=== PATIENT | female | born 1950 | race Caucasian/White ===

== ENCOUNTER 2017-07-01 11:42 | Emergency (ER) | payer MEDICARE, MEDICAID ==
[~2017-07-01] VITALS: Ht 162.6 cm; Wt 105.1 kg
[~2017-07-01 11:42] MED LIST: ALBU8HFA PO; CAR30T PO; GLYB-97 PO; LISI-600 PO; METF500T PO; PHEN-716 PO; PRED50TA PO; ZOC40T PO
[2017-07-01 12:18] VITALS: BP 146/101
[2017-07-01 12:49] LABS: BASOPHILS % (AUTO) 0.2 % (0-1); EOSINOPHILS # (AUTO) 0.1 X10'3 (0-0.9); EOSINOPHILS % (AUTO) 1.9 % (0-6); HEMATOCRIT 39.1 % (35.0-45.0); HEMOGLOBIN 13.3 g/dl (12.0-16.0); LYMPHOCYTES # (AUTO) 0.7 X10'3 (1.1-4.8); MEAN CORPUSCULAR HEMOGLOBIN 28.3 PG (27.0-31.0); MEAN CORPUSCULAR HGB CONC 33.9 % (33.0-36.5); MEAN CORPUSCULAR VOLUME 83.4 FL (78-98); MEAN PLATELET VOLUME 9.3 FL (7.4-10.4); MONOCYTES # (AUTO) 0.3 X10'3 (0-0.9); MONOCYTES % (AUTO) 4.6 % (2-12); NEUTROPHILS % (AUTO) 82.3 % (42-75); PLATELET COUNT 179 X10'3 (140-440); RED BLOOD COUNT 4.69 X10'6 (4.20-5.60); RED CELL DISTRIBUTION WIDTH 12.9 % (11.5-14.5); WHITE BLOOD COUNT 6.1 X10'3 (4.5-11.0)
[2017-07-01 12:58] LABS: PROTHROMBIN TIME 10.1 SECONDS (9.0-12.0)
[2017-07-01 13:04] LABS: ALANINE AMINOTRANSFERASE 18 U/L (12-78); ALBUMIN 3.3 G/DL (3.4-5.0); ALBUMIN/GLOBULIN RATIO 0.8 (1.1-1.5); ALKALINE PHOSPHATASE 85 IU/L (46-116); ANION GAP 9 (8-16); ASPARTATE AMINO TRANSFERASE 11 U/L (10-37); BILIRUBIN,TOTAL 0.5 MG/DL (0.1-1.0); BLOOD UREA NITROGEN 27 MG/DL (7-18); BUN/CREATININE RATIO 16.9 (6.6-38.0); CALCIUM 9.3 MG/DL (8.5-10.1); CHLORIDE 101 MMOL/L (99-107); GLUCOSE 393 MG/DL (70-104); POTASSIUM 4.6 MMOL/L (3.5-5.1); SODIUM 139 MMOL/L (135-145); TOTAL CARBON DIOXIDE 29.4 MMOL/L (24-32); TOTAL PROTEIN 7.3 G/DL (6.4-8.2); eGFR 32 ML/MIN
[2017-07-01] MEDS ORDERED: pantoprazole 40mg Tablet.DR PO ONE (15:10)
[2017-07-01] MEDS ORDERED: ondansetron 4mg rapidly disintigrating tab PO ONE (15:10)
[2017-07-01] MEDS ORDERED: famotidine 20mg tablet PO ONE (15:10)
[2017-07-01 15:15] LABS: CLARITY,URINE SLIGHTLY CLOUDY (Clear); COLOR,URINE YELLOW (Yellow); GLUCOSE, URINE >=1000 mg/dl (Neg); KETONES,URINE TRACE mg/dl (Neg); LEUKOCYTE ESTERASE ,URINE NEGATIVE (Neg); NITRITES, URINE NEGATIVE (Neg); OCCULT BLOOD,URINE NEGATIVE (Neg); PH,URINE 5.5 (4.8-8.0); PROTEIN,URINE TRACE mg/dl (Neg); UROBILINOGEN,URINE 0.2 E.U/dL (0.2-1.0)
[2017-07-01] MEDS ORDERED: POLY119P2 PO (15:15)
[2017-07-01] MEDS ORDERED: HYDROcodone/acetaminophen 5mg/325mg tablet PO ONE (15:15)
[2017-07-01 15:23] LABS: UA COLLECTION TYPE CLN CATCH MIDSTREAM
[2017-07-01 15:25] LABS: BACTERIA,URINE FEW /HPF (Neg); MUCUS STRANDS MANY /LPF (Neg); RBC,URINE NONE SEEN /HPF (0-2); SQUAMOUS EPITHELIAL CELL,UR FEW /LPF (FEW)
== END 2017-07-01 16:25 | disposition home or self-care (01) ==
LOC: ER 11:42
DX: R10.84 Generalized abdominal pain (principal); R11.2 Nausea with vomiting, unspecified; M54.5 Low back pain; G89.29 Other chronic pain; E11.9 Type 2 diabetes mellitus without complications; E78.00 Pure hypercholesterolemia, unspecified; I10 Essential (primary) hypertension; K21.9 Gastro-esophageal reflux disease without esophagitis; I48.91 Unspecified atrial fibrillation; J45.909 Unspecified asthma, uncomplicated; Z86.73 Personal history of transient ischemic attack (TIA), and cerebral infarction without residual deficits; Z90.49 Acquired absence of other specified parts of digestive tract; Z79.899 Other long term (current) drug therapy; Z79.84 Long term (current) use of oral hypoglycemic drugs
CPT/HCPCS: 36415; 80053; 81001; 84484; 85025; 85610; 87088; 93005; 99285

== ENCOUNTER 2019-01-27 15:50 | Inpatient (IN) | payer MEDICAID, MEDICARE ==
[~2019-01-27] VITALS: Ht 162.6 cm; Wt 95.0 kg
[~2019-01-27 15:50] MED LIST changes: +POLY119P2 PO
[2019-01-27 16:27] LABS: BASOPHILS # (AUTO) 0.1 X10'3 (0-0.2); BASOPHILS % (AUTO) 0.5 % (0-1); EOSINOPHILS % (AUTO) 0.1 % (0-6); HEMATOCRIT 36.9 % (35.0-45.0); LYMPHOCYTES # (AUTO) 1.6 X10'3 (1.1-4.8); LYMPHOCYTES % (AUTO) 10.1 % (21-51); MEAN CORPUSCULAR HEMOGLOBIN 27.2 PG (27.0-31.0); MEAN CORPUSCULAR HGB CONC 32.5 g/dL (33.0-36.5); MEAN CORPUSCULAR VOLUME 83.6 FL (78-98); MEAN PLATELET VOLUME 10.4 FL (7.4-10.4); MONOCYTES # (AUTO) 0.8 X10'3 (0-0.9); MONOCYTES % (AUTO) 5.2 % (2-12); NEUTROPHILS # (AUTO) 13.1 X10'3 (1.8-7.7); NEUTROPHILS % (AUTO) 84.1 % (42-75); PLATELET COUNT 360 X10'3 (140-440); RED BLOOD COUNT 4.41 X10'6 (4.20-5.60); RED CELL DISTRIBUTION WIDTH 12.7 % (11.5-14.5); WHITE BLOOD COUNT 15.5 X10'3 (4.5-11.0)
[2019-01-27 16:43] LABS: ALANINE AMINOTRANSFERASE 18 U/L (12-78); ALBUMIN/GLOBULIN RATIO 0.4 (1.1-1.5); ALKALINE PHOSPHATASE 130 IU/L (46-116); ANION GAP 10 (8-16); ASPARTATE AMINO TRANSFERASE 14 U/L (10-37); BILIRUBIN,TOTAL 0.8 MG/DL (0.1-1.0); BLOOD UREA NITROGEN 13 MG/DL (7-18); BUN/CREATININE RATIO 9.4 (6.6-38.0); CALCIUM 8.3 MG/DL (8.5-10.1); CHLORIDE 93 MMOL/L (99-107); CREATININE 1.39 MG/DL (0.40-0.90); GLUCOSE 420 MG/DL (70-104); LIPASE 150 U/L (73-393); SODIUM 128 MMOL/L (135-145); TOTAL CARBON DIOXIDE 25.5 MMOL/L (24-32); TOTAL PROTEIN 7.4 G/DL (6.4-8.2); eGFR 38 ML/MIN
[2019-01-27] MEDS ORDERED: normal saline 1000ML IV soln IVB ONE (18:05)
[2019-01-27] MEDS ORDERED: ondansetron/PF 4mg/2ml inj IV ONE ×3 (18:05→20:35)
--- NOTE | 2019-01-27 18:05 | NUR ---
PATIENT RECEIVED IN BED 8.
[2019-01-27] MEDS: morphine 4 MG/ML inj SYRINge IV PRN ×2 (18:21→19:02)
--- NOTE | 2019-01-27 18:29 | NUR ---
DR. MONIQUE AT BEDSIDE.
[2019-01-27 18:53] LABS: CLARITY,URINE SLIGHTLY CLOUDY (Clear); COLOR,URINE AMBER (Yellow); GLUCOSE, URINE >=1000 mg/dl (Neg); KETONES,URINE TRACE mg/dl (Neg); LEUKOCYTE ESTERASE ,URINE TRACE (Neg); NITRITES, URINE NEGATIVE (Neg); OCCULT BLOOD,URINE LARGE (Neg); PH,URINE 5.5 (4.8-8.0); PROTEIN,URINE 100 mg/dl (Neg)
[2019-01-27 18:55] LABS: UA COLLECTION TYPE CLN CATCH MIDSTREAM
[2019-01-27 19:02] LABS: BACTERIA,URINE 1+ /HPF (Neg); MUCUS STRANDS FEW /LPF (Neg); SQUAMOUS EPITHELIAL CELL,UR MODERATE /LPF (FEW); WBC,URINE 20-30 /HPF (0-4)
[2019-01-27] MEDS ORDERED: CEPH500C5 PO (19:25)
[2019-01-27] MEDS ORDERED: ONDA4TAB12 PO (19:25)
[2019-01-27] MEDS ORDERED: METF500T PO (19:38)
[2019-01-27] MEDS ORDERED: CefTRIAXone 2gm/D5W 50ml 50 ML IV ONE (19:40)
--- NOTE | 2019-01-27 20:00 | NUR ---
PT STARTED ON CEFTRIAXONE IV FOR UTI. PT VITAL SIGNS STABLE. PT A/O X 4. APROX 15 MIN AFTER START OF ABX, PT SON AT BEDSIDE CALLED FOR HELP STATING THAT SOMETHING WAS WRONG. PT FOUND OBTUNDED, RESPONSIVE TO PAINFUL STIMULI. PT O2 SAT DECREASED TO 50% Addendum: 01/27/19 at 2153 by LSAATZER PT CONTINUED TO DECLINE TO CARDIAC ARREST. BEGAN CPR AND VENTILATION W/ HIGH FLOW O2. LIDOCAIN ADMINISTERED 100 MG. AFTER 2 MINUTES CPR, PULSES AND RESPIRATIONS RETURNED. PT PLACED ON NON REBREATHER W/ HIGH FLOW O2. PT MOVED FROM ROOM 8 TO ROOM 6. PT INCREASINGLY A/O.
[2019-01-27 20:41] LABS: D-DIMER 3.09 MG/L FEU (0-0.50)
[2019-01-27 20:47] LABS: TROPONIN I < 0.04 NG/ML (0.0-0.05)
[2019-01-27] MEDS ORDERED: iohexol 350MG/ML 100ml bottle IV ONE (21:14)
--- NOTE | 2019-01-27 21:41 | NUR ---
TO CT SCAN WITH RN ELENA
[2019-01-27] MEDS ORDERED: proCHLORperazine 10 MG/2 ml inj IV PRN ×2 (22:05→22:15)
[2019-01-27] MEDS ORDERED: acetaminophen 325mg tablet PO PRN (22:05)
[2019-01-27] MEDS ORDERED: dextrose 50%-water 50ml dispensing syringe IV PRN ×2 (22:05)
[2019-01-27] MEDS ORDERED: magnesium hydroxide 30ml (MOM) UD suspension PO PRN (22:05)
[2019-01-27] MEDS ORDERED: glucagon, human recombinant 1mg kit SUBCUT PRN (22:05)
[2019-01-27] MEDS ORDERED: ondansetron/PF 4mg/2ml inj IV PRN (22:05)
[2019-01-27] MEDS ORDERED: MESSAGE TO PHARMACY PO ONE (22:05)
[2019-01-27] MEDS ORDERED: morphine 2 MG/ML inj. syringe IV PRN (22:05)
[2019-01-27] MEDS ORDERED: dextrose ORAL solution 15 GM/59 ML bottle PO PRN ×2 (22:05)
[2019-01-27] MEDS ORDERED: potassium Cl 20 mEq SR tablet PO PRN ×2 (22:05)
[2019-01-27] MEDS ORDERED: acetaminophen 650mg rectal suppository RC PRN (22:05)
[2019-01-27] MEDS: normal saline 1000ml 1,000 ML IV SCH (22:30)
[2019-01-27 22:50] LABS: BASOPHILS # (AUTO) 0.1 X10'3 (0-0.2); BASOPHILS % (AUTO) 0.5 % (0-1); EOSINOPHILS % (AUTO) 0.1 % (0-6); HEMATOCRIT 38.4 % (35.0-45.0); HEMOGLOBIN 12.5 g/dl (12.0-16.0); LYMPHOCYTES # (AUTO) 0.6 X10'3 (1.1-4.8); LYMPHOCYTES % (AUTO) 4.7 % (21-51); MEAN CORPUSCULAR HEMOGLOBIN 27.8 PG (27.0-31.0); MEAN CORPUSCULAR HGB CONC 32.6 g/dL (33.0-36.5); MEAN CORPUSCULAR VOLUME 85.2 FL (78-98); MEAN PLATELET VOLUME 10.8 FL (7.4-10.4); MONOCYTES # (AUTO) 0.6 X10'3 (0-0.9); MONOCYTES % (AUTO) 4.6 % (2-12); NEUTROPHILS # (AUTO) 11.1 X10'3 (1.8-7.7); NEUTROPHILS % (AUTO) 90.1 % (42-75); PLATELET COUNT 348 X10'3 (140-440); WHITE BLOOD COUNT 12.3 X10'3 (4.5-11.0)
[2019-01-27 23:06] LABS: PARTIAL THROMBOPLASTIN TIME 29 SECONDS (22-32)
[2019-01-27 23:14] LABS: HEMOGLOBIN A1C 11.6 % (4.5-6.2)
[2019-01-27 23:28] LABS: ALANINE AMINOTRANSFERASE 117 U/L (12-78); ALBUMIN 1.9 G/DL (3.4-5.0); ALBUMIN/GLOBULIN RATIO 0.3 (1.1-1.5); ALKALINE PHOSPHATASE 258 IU/L (46-116); ANION GAP 11 (8-16); ASPARTATE AMINO TRANSFERASE 260 U/L (10-37); BILIRUBIN,TOTAL 1.6 MG/DL (0.1-1.0); BLOOD UREA NITROGEN 13 MG/DL (7-18); BUN/CREATININE RATIO 10.2 (6.6-38.0); CALCIUM 8.2 MG/DL (8.5-10.1); CHLORIDE 96 MMOL/L (99-107); CREATININE 1.28 MG/DL (0.40-0.90); GLUCOSE 399 MG/DL (70-104); MAGNESIUM 1.6 MG/DL (1.5-2.4); PHOSPHORUS 3.6 MG/DL (2.3-4.5); POTASSIUM 3.7 MMOL/L (3.5-5.1); SODIUM 133 MMOL/L (135-145); TOTAL CARBON DIOXIDE 25.7 MMOL/L (24-32); TOTAL PROTEIN 7.5 G/DL (6.4-8.2); eGFR 41 ML/MIN
[2019-01-27] MEDS ORDERED: metoclopramide 5 mg/ml inj IV ONE (23:30)
[2019-01-27 23:37] LABS: LARGE PLATELETS FEW; PLATELET ESTIMATE NORMAL
[2019-01-28] VITALS (24 sets, daily range): BP systolic 104–172; BP diastolic 56–83
[2019-01-28] MEDS ORDERED: insulin Lispro (HumaLOG) vial - multi-dose SQ ONE (00:05)
[2019-01-28] MEDS: insulin glargine (Lantus) pen - multi-dose SQ SCH ×2 (00:17→21:07)
[2019-01-28 06:00] LABS: BASOPHILS # (AUTO) 0.1 X10'3 (0-0.2); BASOPHILS % (AUTO) 0.5 % (0-1); EOSINOPHILS % (AUTO) 0 % (0-6); HEMATOCRIT 35.7 % (35.0-45.0); HEMOGLOBIN 11.6 g/dl (12.0-16.0); LYMPHOCYTES # (AUTO) 0.8 X10'3 (1.1-4.8); MEAN CORPUSCULAR HEMOGLOBIN 27.4 PG (27.0-31.0); MEAN CORPUSCULAR HGB CONC 32.6 g/dL (33.0-36.5); MEAN CORPUSCULAR VOLUME 84.1 FL (78-98); MEAN PLATELET VOLUME 10.3 FL (7.4-10.4); MONOCYTES # (AUTO) 0.7 X10'3 (0-0.9); MONOCYTES % (AUTO) 5.4 % (2-12); NEUTROPHILS # (AUTO) 11.2 X10'3 (1.8-7.7); NEUTROPHILS % (AUTO) 88.1 % (42-75); PLATELET COUNT 321 X10'3 (140-440); RED BLOOD COUNT 4.24 X10'6 (4.20-5.60); RED CELL DISTRIBUTION WIDTH 12.7 % (11.5-14.5); WHITE BLOOD COUNT 12.8 X10'3 (4.5-11.0)
[2019-01-28 06:29] LABS: ALKALINE PHOSPHATASE 238 IU/L (46-116); BILIRUBIN,TOTAL 1.2 MG/DL (0.1-1.0); BLOOD UREA NITROGEN 14 MG/DL (7-18); MAGNESIUM 1.8 MG/DL (1.5-2.4); PHOSPHORUS 4.5 MG/DL (2.3-4.5); TROPONIN I 0.04 NG/ML (0.0-0.05)
[2019-01-28 06:30] LABS: LDL CHOLESTEROL 80 MG/DL (50-100)
[2019-01-28 06:56] LABS: ALANINE AMINOTRANSFERASE 109 U/L (12-78); ALBUMIN 1.7 G/DL (3.4-5.0); ALBUMIN/GLOBULIN RATIO 0.3 (1.1-1.5); ANION GAP 8 (8-16); ASPARTATE AMINO TRANSFERASE 142 U/L (10-37); BUN/CREATININE RATIO 11.5 (6.6-38.0); CALCIUM 8.3 MG/DL (8.5-10.1); CHLORIDE 100 MMOL/L (99-107); CHOL/HDL RATIO 6.6 (0.00-4.99); CHOLESTEROL 118 MG/DL (0-200); CREATININE 1.22 MG/DL (0.40-0.90); GLUCOSE 311 MG/DL (70-104); HDL CHOLESTEROL 18 MG/DL (35-60); POTASSIUM 4.2 MMOL/L (3.5-5.1); SODIUM 134 MMOL/L (135-145); TOTAL CARBON DIOXIDE 26.2 MMOL/L (24-32); TRIGLYCERIDES 102 MG/DL (20-135); eGFR 44 ML/MIN
[2019-01-28] MEDS: heparin, porcine 5000 units/ml vial SQ SCH ×2 (07:44→19:51)
[2019-01-28] MEDS: normal saline 1000ml 1,000 ML IV SCH ×2 (07:44→18:03)
[2019-01-28] MEDS: levoFLOXACIN-Levaquin 250mg/D5 50 ML IV SCH (07:45)
[2019-01-28] MEDS: docusate sod 100mg capsule PO SCH ×2 (07:56→19:50)
[2019-01-28] MEDS: aspirin 81mg tablet.DR PO SCH (07:57)
[2019-01-28] MEDS ORDERED: pantoprazole 40 MG vial IV SCH (08:00)
[2019-01-28] MEDS: insulin Lispro (HumaLOG) vial - multi-dose SQ SCH ×3 (08:58→19:53)
[2019-01-28] MEDS ORDERED: sod chloride 0.9% 10ml flush syringe IV ONE (09:00)
[2019-01-28] MEDS ORDERED: LIDOcaine 2% (20 mg/ml) 5ml cardiac syringe ONE (09:00)
--- NOTE | 2019-01-28 11:40 | NUR ---
DM consult: Pt with T2DM with A1c 11.6. Pt admit s/p code blue after multimedia author for UTI tx. Pt is a poor historian so hx limited per H&P. Pt will need DM education prior to discharge. Per H&P pt has not been taking medications d/t financial issues, manager social media has been consulted. Pt previously on clear liquid diet documented with 100% PO intake however diet just advanced to CHO controlled, pending PO intake. No documented BM, pt with routine Colace and MoM PRN. Will continue to follow. Recommendations: 1) Continue CHO controlled diet 2) Routine bowel care 3) DM education prior to discharge 4) Wt per rx Addendum: 01/28/19 at [address] Amended: Links added.
--- NOTE | 2019-01-28 18:20 | NUR ---
Patient in room ICU 2041. I have received report from Aileen TIDWELL and had the opportunity to ask questions and assume patient care. Patient sitting up in chair, in no apparent distress. Vitals WNL on room air. Will continue to monitor patient.
[2019-01-28] MEDS: lactobacillus rhamnosus 10,000 MMU CELLS/CAPSULE PO SCH (19:50)
[2019-01-28] MEDS ORDERED: insulin glargine (Lantus) pen - multi-dose SQ SCH (21:00)
--- NOTE | 2019-01-28 21:08 | NUR ---
Patient complaining of "chills", patient visibly shivering. Temperature taken orally and reading 37 degrees celcius. Blood sugar taken and reading 252. Offered patient more blankets, warm tea, or to turn the thermostat up, declines all. Notified Yecenia Banerjee NP, no new orders received at this time. Will continue to monitor patient.
[2019-01-28] MEDS: acetaminophen 325mg tablet PO PRN (23:18)
[2019-01-29] VITALS (21 sets, daily range): BP systolic 89–158; BP diastolic 53–88
[2019-01-29] MEDS: normal saline 1000ml 1,000 ML IV SCH (03:00)
[2019-01-29 06:07] LABS: BASOPHILS # (AUTO) 0.1 X10'3 (0-0.2); BASOPHILS % (AUTO) 0.6 % (0-1); EOSINOPHILS # (AUTO) 0.1 X10'3 (0-0.9); EOSINOPHILS % (AUTO) 0.9 % (0-6); HEMATOCRIT 38.5 % (35.0-45.0); HEMOGLOBIN 12.3 g/dl (12.0-16.0); LYMPHOCYTES # (AUTO) 1.5 X10'3 (1.1-4.8); LYMPHOCYTES % (AUTO) 11.8 % (21-51); MEAN CORPUSCULAR HEMOGLOBIN 26.9 PG (27.0-31.0); MEAN CORPUSCULAR HGB CONC 31.9 g/dL (33.0-36.5); MEAN CORPUSCULAR VOLUME 84.3 FL (78-98); MEAN PLATELET VOLUME 10.8 FL (7.4-10.4); MONOCYTES # (AUTO) 0.5 X10'3 (0-0.9); MONOCYTES % (AUTO) 4.3 % (2-12); NEUTROPHILS # (AUTO) 10.3 X10'3 (1.8-7.7); NEUTROPHILS % (AUTO) 82.4 % (42-75); PLATELET COUNT 346 X10'3 (140-440); RED BLOOD COUNT 4.56 X10'6 (4.20-5.60); RED CELL DISTRIBUTION WIDTH 13.3 % (11.5-14.5); WHITE BLOOD COUNT 12.5 X10'3 (4.5-11.0)
--- NOTE | 2019-01-29 06:16 | NUR ---
Problems reprioritized. Patient report given, questions answered & plan of care reviewed with Margie TIDWELL.
[2019-01-29 06:24] LABS: ALANINE AMINOTRANSFERASE 84 U/L (12-78); ALBUMIN 1.7 G/DL (3.4-5.0); ALBUMIN/GLOBULIN RATIO 0.3 (1.1-1.5); ALKALINE PHOSPHATASE 211 IU/L (46-116); ANION GAP 6 (8-16); ASPARTATE AMINO TRANSFERASE 50 U/L (10-37); BILIRUBIN,TOTAL 0.4 MG/DL (0.1-1.0); BLOOD UREA NITROGEN 15 MG/DL (7-18); BUN/CREATININE RATIO 12.2 (6.6-38.0); CALCIUM 8.4 MG/DL (8.5-10.1); CHLORIDE 103 MMOL/L (99-107); CREATININE 1.23 MG/DL (0.40-0.90); GLUCOSE 181 MG/DL (70-104); MAGNESIUM 1.7 MG/DL (1.5-2.4); PHOSPHORUS 3.6 MG/DL (2.3-4.5); POTASSIUM 3.9 MMOL/L (3.5-5.1); SODIUM 137 MMOL/L (135-145); TOTAL CARBON DIOXIDE 27.6 MMOL/L (24-32); TOTAL PROTEIN 6.7 G/DL (6.4-8.2); TROPONIN I < 0.04 NG/ML (0.0-0.05); eGFR 43 ML/MIN
--- NOTE | 2019-01-29 06:49 | NUR ---
received report and assumed care of this patient. chart reviewed and plan of care discussed with patient.
[2019-01-29] MEDS: aspirin 81mg tablet.DR PO SCH (07:15)
[2019-01-29] MEDS: docusate sod 100mg capsule PO SCH ×2 (07:15→19:35)
[2019-01-29] MEDS: lactobacillus rhamnosus 10,000 MMU CELLS/CAPSULE PO SCH ×2 (07:16→19:35)
[2019-01-29] MEDS: acetaminophen 325mg tablet PO PRN ×3 (07:16→21:12)
[2019-01-29] MEDS: heparin, porcine 5000 units/ml vial SQ SCH ×2 (07:17→19:36)
[2019-01-29] MEDS: levoFLOXACIN-Levaquin 250mg/D5 50 ML IV SCH (07:17)
[2019-01-29 07:34] LABS: LARGE PLATELETS FEW; PLATELET ESTIMATE NORMAL
[2019-01-29] MEDS: insulin Lispro (HumaLOG) vial - multi-dose SQ SCH ×3 (08:29→19:38)
[2019-01-29] MEDS: pantoprazole 40mg Tablet.DR PO SCH (09:00)
--- NOTE | 2019-01-29 12:01 | NUR ---
DM Consult: Pt resting following pain meds since in substantial pain per RN. TESS left written DM ed at bedside along w/ RD contact information and CDE course information. Pt would benefit from verbal DM reinforcement once more appropriate prior to d/c. Addendum: 01/29/19 at [address] Amended: Links added. Addendum: 01/29/19 at [address] DM/Malnutrition Consults: Pt resting following pain meds since in substantial pain per RN. TESS left written DM ed at bedside along w/ RD contact information and CDE course information. Pt would benefit from verbal DM reinforcement once more appropriate prior to d/c. Pt PO 100% meals meeting needs, no visible signs of muscle/fat loss, and no edema/wounds; does not meet malnutrition criteria at this time.
--- NOTE | 2019-01-29 20:00 | NUR ---
Report given to Esther TIDWELL. Patient transferred to room 3013A via wheelchair accompanied by RN and son with all belongings. Patient alert/oriented x4 and stable at time of transfer.
--- NOTE | 2019-01-29 20:20 | NUR ---
I have received report from DIANN Ba in ICU and had the opportunity to ask questions. Awaiting patient arrival to floor in room 3013A.
--- NOTE | 2019-01-29 20:30 | NUR ---
Patient awake and alert for transfer of care. Patient specific humalog and lantus transferred with patient and handed off by HOME MISSION WORKER to fixture relamper. Personal belongings placed on bedside table and son in room. Patient on 2L NC and saline locked. 2 RN skin check performed and VS are as follows: Temperature- 99.3, HR- 88, 96 2L NC, B/P- 153/72, right arm and 6/10 pain. Will continue to monitor closely.
--- NOTE | 2019-01-29 21:00 | NUR ---
Requested and obtained new patient arm band. Would not scan while performing glucometer checks and is unable to recognize patient's visit account number. complex manager left voice mail for Point of Care regarding patient wristband. Blood glucose 199 at 2100. Will continue to monitor closely.
[2019-01-29] MEDS: insulin glargine (Lantus) pen - multi-dose SQ SCH (21:19)
[2019-01-30 03:00] VITALS: BP 121/59
[2019-01-30 05:54] LABS: ALANINE AMINOTRANSFERASE 50 U/L (12-78); ALBUMIN 1.5 G/DL (3.4-5.0); ALBUMIN/GLOBULIN RATIO 0.3 (1.1-1.5); ALKALINE PHOSPHATASE 175 IU/L (46-116); ANION GAP 7 (8-16); ASPARTATE AMINO TRANSFERASE 21 U/L (10-37); BILIRUBIN,TOTAL 0.2 MG/DL (0.1-1.0); BLOOD UREA NITROGEN 16 MG/DL (7-18); CALCIUM 8.1 MG/DL (8.5-10.1); CHLORIDE 104 MMOL/L (99-107); CREATININE 1.23 MG/DL (0.40-0.90); GLUCOSE 201 MG/DL (70-104); MAGNESIUM 1.8 MG/DL (1.5-2.4); SODIUM 138 MMOL/L (135-145); TOTAL CARBON DIOXIDE 27.2 MMOL/L (24-32); TOTAL PROTEIN 6.2 G/DL (6.4-8.2); eGFR 43 ML/MIN
--- NOTE | 2019-01-30 06:35 | NUR ---
Problems reprioritized. Patient report given, questions answered & plan of care reviewed with DIANN Garibay and DIANN Dixon.
[2019-01-30 07:00] VITALS: BP 155/80
[2019-01-30 08:05] LABS: BASOPHILS # (AUTO) 0.1 X10'3 (0-0.2); EOSINOPHILS # (AUTO) 0.1 X10'3 (0-0.9); EOSINOPHILS % (AUTO) 1.2 % (0-6); HEMATOCRIT 33.7 % (35.0-45.0); HEMOGLOBIN 10.9 g/dl (12.0-16.0); LYMPHOCYTES # (AUTO) 1.4 X10'3 (1.1-4.8); LYMPHOCYTES % (AUTO) 11.4 % (21-51); MEAN CORPUSCULAR HEMOGLOBIN 27.3 PG (27.0-31.0); MEAN CORPUSCULAR HGB CONC 32.4 g/dL (33.0-36.5); MEAN CORPUSCULAR VOLUME 84.3 FL (78-98); MEAN PLATELET VOLUME 10.5 FL (7.4-10.4); MONOCYTES # (AUTO) 0.8 X10'3 (0-0.9); MONOCYTES % (AUTO) 6.1 % (2-12); NEUTROPHILS # (AUTO) 9.8 X10'3 (1.8-7.7); NEUTROPHILS % (AUTO) 80.3 % (42-75); PLATELET COUNT 333 X10'3 (140-440); RED CELL DISTRIBUTION WIDTH 13.2 % (11.5-14.5); WHITE BLOOD COUNT 12.2 X10'3 (4.5-11.0)
[2019-01-30] MEDS: insulin Lispro (HumaLOG) vial - multi-dose SQ SCH ×3 (09:30→21:22)
[2019-01-30] MEDS: heparin, porcine 5000 units/ml vial SQ SCH ×2 (09:31→20:44)
[2019-01-30] MEDS: pantoprazole 40mg Tablet.DR PO SCH (09:32)
[2019-01-30] MEDS: lactobacillus rhamnosus 10,000 MMU CELLS/CAPSULE PO SCH ×2 (09:32→20:45)
[2019-01-30] MEDS: docusate sod 100mg capsule PO SCH ×2 (09:32→20:00)
[2019-01-30] MEDS: aspirin 81mg tablet.DR PO SCH (09:32)
[2019-01-30] MEDS: levoFLOXACIN 250mg tablet PO SCH (10:13)
[2019-01-30] MEDS: acetaminophen 325mg tablet PO PRN ×2 (10:14→20:46)
--- NOTE | 2019-01-30 10:20 | NUR ---
Notified by PT that patient had positive orthostatic VS today and was symptomatic. Will convey to MD today.
[2019-01-30 11:00] VITALS: BP 113/76
[2019-01-30] MEDS ORDERED: NO HOME MEDS (12:03)
--- NOTE | 2019-01-30 14:54 | NUR ---
F/u: Pt not in room during RD visit for attempt to reinforce DM ed. Will continue to monitor. Addendum: 01/30/19 at [address] Amended: Links added.
[2019-01-30 15:00] VITALS: BP 98/60
--- NOTE | 2019-01-30 18:00 | NUR ---
[place] documentation: I have reviewed and agree with all interventions, assessments performed and documented by Stacie TIDWELL. [place] Medication Administration: For this medication-pass time frame, all medication were reviewed, dispensed, administered and documented per hospital policy by Stacie TIDWELL.
--- NOTE | 2019-01-30 18:15 | NUR ---
Patient in room PCU 3013. I have received report from Stacie TIDWELL and Lani TIDWELL and had the opportunity to ask questions and assume patient care.
[2019-01-30 19:00] VITALS: BP 152/79
[2019-01-30] MEDS: insulin glargine (Lantus) pen - multi-dose SQ SCH (21:20)
[2019-01-30 22:51] VITALS: BP 144/71
[2019-01-31 03:00] VITALS: BP 144/62
[2019-01-31 05:16] LABS: BASOPHILS # (AUTO) 0.1 X10'3 (0-0.2); BASOPHILS % (AUTO) 0.9 % (0-1); EOSINOPHILS # (AUTO) 0.2 X10'3 (0-0.9); EOSINOPHILS % (AUTO) 1.9 % (0-6); HEMATOCRIT 34.6 % (35.0-45.0); LYMPHOCYTES # (AUTO) 1.8 X10'3 (1.1-4.8); LYMPHOCYTES % (AUTO) 15.6 % (21-51); MEAN CORPUSCULAR HEMOGLOBIN 26.9 PG (27.0-31.0); MEAN CORPUSCULAR HGB CONC 31.7 g/dL (33.0-36.5); MEAN CORPUSCULAR VOLUME 84.9 FL (78-98); MEAN PLATELET VOLUME 9.9 FL (7.4-10.4); MONOCYTES # (AUTO) 0.8 X10'3 (0-0.9); MONOCYTES % (AUTO) 6.6 % (2-12); NEUTROPHILS # (AUTO) 8.7 X10'3 (1.8-7.7); PLATELET COUNT 376 X10'3 (140-440); RED BLOOD COUNT 4.08 X10'6 (4.20-5.60); RED CELL DISTRIBUTION WIDTH 13.2 % (11.5-14.5); WHITE BLOOD COUNT 11.6 X10'3 (4.5-11.0)
[2019-01-31 05:34] LABS: ALANINE AMINOTRANSFERASE 38 U/L (12-78); ALBUMIN 1.6 G/DL (3.4-5.0); ALBUMIN/GLOBULIN RATIO 0.3 (1.1-1.5); ALKALINE PHOSPHATASE 190 IU/L (46-116); ANION GAP 6 (8-16); ASPARTATE AMINO TRANSFERASE 17 U/L (10-37); BILIRUBIN,TOTAL 0.2 MG/DL (0.1-1.0); BLOOD UREA NITROGEN 16 MG/DL (7-18); BUN/CREATININE RATIO 10.6 (6.6-38.0); CALCIUM 8.6 MG/DL (8.5-10.1); CHLORIDE 104 MMOL/L (99-107); CREATININE 1.51 MG/DL (0.40-0.90); GLUCOSE 195 MG/DL (70-104); MAGNESIUM 1.9 MG/DL (1.5-2.4); POTASSIUM 4.6 MMOL/L (3.5-5.1); SODIUM 138 MMOL/L (135-145); TOTAL CARBON DIOXIDE 28.4 MMOL/L (24-32); TOTAL PROTEIN 6.8 G/DL (6.4-8.2); eGFR 34 ML/MIN
--- NOTE | 2019-01-31 06:39 | NUR ---
Problems reprioritized. Patient report given, questions answered & plan of care reviewed with Estefany TIDWELL.
--- NOTE | 2019-01-31 06:45 | NUR ---
Patient in room PCU 3013. I have received report from misael TIDWELL and had the opportunity to ask questions and assume patient care.
[2019-01-31 07:00] VITALS: BP 171/84
[2019-01-31] MEDS: docusate sod 100mg capsule PO SCH ×2 (08:18→19:22)
[2019-01-31] MEDS: aspirin 81mg tablet.DR PO SCH (08:19)
[2019-01-31] MEDS: heparin, porcine 5000 units/ml vial SQ SCH ×2 (08:19→19:22)
[2019-01-31] MEDS: lactobacillus rhamnosus 10,000 MMU CELLS/CAPSULE PO SCH ×2 (08:19→19:22)
[2019-01-31] MEDS: pantoprazole 40mg Tablet.DR PO SCH (08:19)
[2019-01-31] MEDS: insulin Lispro (HumaLOG) vial - multi-dose SQ SCH ×3 (09:23→19:27)
[2019-01-31] MEDS: levoFLOXACIN 250mg tablet PO SCH (10:36)
[2019-01-31 11:00] VITALS: BP 171/80
--- NOTE | 2019-01-31 13:32 | NUR ---
Reassessment: Pt seen at bedside with family present. Pt reports she hasn't seen an MD for DM management for more than 1 year which at this time she discontinued taking medications and hasn't checked her BG levels d/t not having a meter. child protective services social worker has already been consulted. Pt provided with written and verbal DM education with referral to outpatient DM class and RD contact information. Pt endorses a good appetite which is evident with documented 100% PO intake on CHO controlled diet. Pt denies any food allergies or difficulty chewing/swallowing. Per pt LBM prior to admit on 01/27 however denies nutrition therapy for constipation at this time. Pt with MoM PRN last given 01/29. Will continue to follow. Recommendations: 1) Continue CHO controlled diet 2) Routine bowel care 3) Wt per rx Addendum: 01/31/19 at [address] Amended: Links added.
[2019-01-31 15:00] VITALS: BP 164/80
[2019-01-31] MEDS: acetaminophen 325mg tablet PO PRN ×2 (16:13→20:26)
--- NOTE | 2019-01-31 18:15 | NUR ---
Patient in room PCU 3013. I have received report from Estefany TIDWELL and had the opportunity to ask questions and assume patient care.
--- NOTE | 2019-01-31 18:27 | NUR ---
Problems reprioritized. Patient report given, questions answered & plan of care reviewed with Aylin TIDWELL.
[2019-01-31 19:00] VITALS: BP 115/57
[2019-01-31] MEDS: insulin glargine (Lantus) pen - multi-dose SQ SCH (21:17)
[2019-01-31 23:00] VITALS: BP 167/73
[2019-02-01 03:00] VITALS: BP 164/75
[2019-02-01 05:42] LABS: BASOPHILS # (AUTO) 0.1 X10'3 (0-0.2); BASOPHILS % (AUTO) 0.6 % (0-1); EOSINOPHILS # (AUTO) 0.2 X10'3 (0-0.9); EOSINOPHILS % (AUTO) 2.1 % (0-6); HEMATOCRIT 34.5 % (35.0-45.0); HEMOGLOBIN 11.1 g/dl (12.0-16.0); LYMPHOCYTES # (AUTO) 1.3 X10'3 (1.1-4.8); LYMPHOCYTES % (AUTO) 15.4 % (21-51); MEAN CORPUSCULAR HEMOGLOBIN 27.4 PG (27.0-31.0); MEAN CORPUSCULAR HGB CONC 32.2 g/dL (33.0-36.5); MEAN CORPUSCULAR VOLUME 85.2 FL (78-98); MEAN PLATELET VOLUME 10.7 FL (7.4-10.4); MONOCYTES # (AUTO) 0.7 X10'3 (0-0.9); MONOCYTES % (AUTO) 7.8 % (2-12); NEUTROPHILS # (AUTO) 6.3 X10'3 (1.8-7.7); NEUTROPHILS % (AUTO) 74.1 % (42-75); PLATELET COUNT 354 X10'3 (140-440); RED BLOOD COUNT 4.05 X10'6 (4.20-5.60); RED CELL DISTRIBUTION WIDTH 13.3 % (11.5-14.5); WHITE BLOOD COUNT 8.6 X10'3 (4.5-11.0)
[2019-02-01 05:48] LABS: ALANINE AMINOTRANSFERASE 32 U/L (12-78); ALBUMIN 1.7 G/DL (3.4-5.0); ALBUMIN/GLOBULIN RATIO 0.3 (1.1-1.5); ALKALINE PHOSPHATASE 201 IU/L (46-116); ANION GAP 8 (8-16); ASPARTATE AMINO TRANSFERASE 21 U/L (10-37); BILIRUBIN,TOTAL 0.2 MG/DL (0.1-1.0); BLOOD UREA NITROGEN 17 MG/DL (7-18); BUN/CREATININE RATIO 15.3 (6.6-38.0); CHLORIDE 104 MMOL/L (99-107); CREATININE 1.11 MG/DL (0.40-0.90); GLUCOSE 141 MG/DL (70-104); MAGNESIUM 1.8 MG/DL (1.5-2.4); POTASSIUM 4.1 MMOL/L (3.5-5.1); SODIUM 140 MMOL/L (135-145); TOTAL CARBON DIOXIDE 27.7 MMOL/L (24-32); TOTAL PROTEIN 6.6 G/DL (6.4-8.2); eGFR 49 ML/MIN
[2019-02-01 06:00] VITALS: BP 163/87
--- NOTE | 2019-02-01 06:10 | NUR ---
Patient in room PCU 3013. I have received report from Aylin TIDWELL and had the opportunity to ask questions and assume patient care.
--- NOTE | 2019-02-01 06:24 | NUR ---
Problems reprioritized. Patient report given, questions answered & plan of care reviewed with Dilan TIDWELL.
[2019-02-01] MEDS ORDERED: magnesium Cl slow-release 64mg tablet PO PRN (07:20)
[2019-02-01] MEDS ORDERED: magnesium 4gm in 100ml NS 100 ML IV PRN (07:20)
[2019-02-01] MEDS: docusate sod 100mg capsule PO SCH ×2 (08:13→20:14)
[2019-02-01] MEDS: pantoprazole 40mg Tablet.DR PO SCH (08:13)
[2019-02-01] MEDS: heparin, porcine 5000 units/ml vial SQ SCH ×2 (08:13→20:15)
[2019-02-01] MEDS: aspirin 81mg tablet.DR PO SCH (08:13)
[2019-02-01] MEDS: lactobacillus rhamnosus 10,000 MMU CELLS/CAPSULE PO SCH ×2 (08:13→20:14)
[2019-02-01 08:48] LABS: LARGE PLATELETS FEW; PLATELET ESTIMATE NORMAL
[2019-02-01] MEDS: insulin Lispro (HumaLOG) vial - multi-dose SQ SCH ×3 (09:15→18:45)
[2019-02-01 11:00] VITALS: BP 154/86
[2019-02-01] MEDS: levoFLOXACIN 250mg tablet PO SCH (11:11)
[2019-02-01 15:00] VITALS: BP 155/82
[2019-02-01 18:00] VITALS: BP 145/70
--- NOTE | 2019-02-01 18:10 | NUR ---
Problems reprioritized. Patient report given, questions answered & plan of care reviewed with Aylin TIDWELL.
--- NOTE | 2019-02-01 18:30 | NUR ---
Patient in room U 3013. I have received report from and had the opportunity to ask questions and assume patient care. Addendum: 02/01/19 at 1830 by Aylin Fernandes RN received report from Dilan TIDWELL
[2019-02-01] MEDS: acetaminophen 325mg tablet PO PRN (20:16)
[2019-02-01] MEDS: insulin glargine (Lantus) pen - multi-dose SQ SCH (22:53)
[2019-02-01 23:00] VITALS: BP 139/77
[2019-02-02 05:29] LABS: ALANINE AMINOTRANSFERASE 30 U/L (12-78); ALBUMIN 1.7 G/DL (3.4-5.0); ALBUMIN/GLOBULIN RATIO 0.3 (1.1-1.5); ALKALINE PHOSPHATASE 201 IU/L (46-116); ANION GAP 6 (8-16); ASPARTATE AMINO TRANSFERASE 21 U/L (10-37); BILIRUBIN,TOTAL 0.2 MG/DL (0.1-1.0); BLOOD UREA NITROGEN 19 MG/DL (7-18); BUN/CREATININE RATIO 16.5 (6.6-38.0); CALCIUM 8.5 MG/DL (8.5-10.1); CHLORIDE 105 MMOL/L (99-107); CREATININE 1.15 MG/DL (0.40-0.90); GLUCOSE 136 MG/DL (70-104); MAGNESIUM 1.9 MG/DL (1.5-2.4); POTASSIUM 4.3 MMOL/L (3.5-5.1); SODIUM 139 MMOL/L (135-145); TOTAL CARBON DIOXIDE 27.6 MMOL/L (24-32); TOTAL PROTEIN 6.7 G/DL (6.4-8.2); eGFR 47 ML/MIN
[2019-02-02 05:39] LABS: BASOPHILS # (AUTO) 0.1 X10'3 (0-0.2); BASOPHILS % (AUTO) 0.9 % (0-1); EOSINOPHILS # (AUTO) 0.2 X10'3 (0-0.9); EOSINOPHILS % (AUTO) 2.2 % (0-6); HEMATOCRIT 33.8 % (35.0-45.0); LYMPHOCYTES # (AUTO) 1.6 X10'3 (1.1-4.8); LYMPHOCYTES % (AUTO) 23.5 % (21-51); MEAN CORPUSCULAR HEMOGLOBIN 27.7 PG (27.0-31.0); MEAN CORPUSCULAR HGB CONC 32.5 g/dL (33.0-36.5); MONOCYTES # (AUTO) 0.7 X10'3 (0-0.9); MONOCYTES % (AUTO) 9.9 % (2-12); NEUTROPHILS # (AUTO) 4.5 X10'3 (1.8-7.7); NEUTROPHILS % (AUTO) 63.5 % (42-75); PLATELET COUNT 356 X10'3 (140-440); RED BLOOD COUNT 3.98 X10'6 (4.20-5.60); RED CELL DISTRIBUTION WIDTH 13.3 % (11.5-14.5)
[2019-02-02 06:00] VITALS: BP 172/88
--- NOTE | 2019-02-02 06:00 | NUR ---
Patient in room PCU 3013. I have received report from Aylin TIDWELL and had the opportunity to ask questions and assume patient care.
--- NOTE | 2019-02-02 06:24 | NUR ---
Problems reprioritized. Patient report given, questions answered & plan of care reviewed with Mary Ann TIDWELL.
[2019-02-02] MEDS: docusate sod 100mg capsule PO SCH (07:36)
[2019-02-02] MEDS: pantoprazole 40mg Tablet.DR PO SCH (07:36)
[2019-02-02] MEDS: lactobacillus rhamnosus 10,000 MMU CELLS/CAPSULE PO SCH (07:36)
[2019-02-02] MEDS: aspirin 81mg tablet.DR PO SCH (07:36)
[2019-02-02] MEDS: heparin, porcine 5000 units/ml vial SQ SCH (07:37)
[2019-02-02] MEDS: insulin Lispro (HumaLOG) vial - multi-dose SQ SCH ×2 (08:41→13:31)
[2019-02-02] MEDS: levoFLOXACIN 250mg tablet PO SCH (11:09)
[2019-02-02] MEDS: acetaminophen 325mg tablet PO PRN (11:13)
[2019-02-02] MEDS ORDERED: ASPI-1071 PO (12:49)
[2019-02-02] MEDS ORDERED: LEVO250T58 PO (12:49)
--- NOTE | 2019-02-02 13:40 | NUR ---
Prescriptions called to pt specified pharmacy, [facility] [phone] Address [address] [place], [place].
== END 2019-02-02 14:23 | disposition home or self-care (01) | DRG 689 ==
LOC: ER 15:50 → ICU 2S 23:19 → PCU 3S 01-29 20:29
PROVIDERS: ADMIT Nurse Practitioner Family; ATTEND Internal Medicine Critical Care Medicine
PROC: B32T1ZZ Computerized Tomography (CT Scan) of Left Pulmonary Artery using Low Osmolar Contrast (ICD-10-PCS; principal; 2019-01-27)
PROC: B3201ZZ Computerized Tomography (CT Scan) of Thoracic Aorta using Low Osmolar Contrast (ICD-10-PCS; 2019-01-27)
PROC: B32S1ZZ Computerized Tomography (CT Scan) of Right Pulmonary Artery using Low Osmolar Contrast (ICD-10-PCS; 2019-01-27)
PROC: BW211ZZ Computerized Tomography (CT Scan) of Abdomen and Pelvis using Low Osmolar Contrast (ICD-10-PCS; 2019-01-27)
PROC: 5A12012 Performance of Cardiac Output, Single, Manual (ICD-10-PCS; 2019-01-27)
DX: N30.90 Cystitis, unspecified without hematuria (principal); I46.9 Cardiac arrest, cause unspecified; S22.41XA Multiple fractures of ribs, right side, initial encounter for closed fracture; N28.0 Ischemia and infarction of kidney; T36.1X5A Adverse effect of cephalosporins and other beta-lactam antibiotics, initial encounter; K72.90 Hepatic failure, unspecified without coma; D73.5 Infarction of spleen; E11.9 Type 2 diabetes mellitus without complications; E66.01 Morbid (severe) obesity due to excess calories; M54.9 Dorsalgia, unspecified; Z68.35 Body mass index [BMI] 35.0-35.9, adult; E78.00 Pure hypercholesterolemia, unspecified; E78.5 Hyperlipidemia, unspecified; B95.5 Unspecified streptococcus as the cause of diseases classified elsewhere; I10 Essential (primary) hypertension; I48.91 Unspecified atrial fibrillation; I49.3 Ventricular premature depolarization; J45.909 Unspecified asthma, uncomplicated; K21.9 Gastro-esophageal reflux disease without esophagitis; Z59.9 Problem related to housing and economic circumstances, unspecified; Z86.73 Personal history of transient ischemic attack (TIA), and cerebral infarction without residual deficits; Z90.49 Acquired absence of other specified parts of digestive tract; Z91.14 Patient's other noncompliance with medication regimen; Z88.8 Allergy status to other drugs, medicaments and biological substances; Z79.899 Other long term (current) drug therapy; Y93.89 Activity, other specified; Y92.89 Other specified places as the place of occurrence of the external cause; Y99.8 Other external cause status
CPT/HCPCS: 36415; 71045; 71275; 72148; 74177; 80053; 80061; 81001; 82948; 83036; 83605; 83690; 83735; 83880; 84100; 84145; 84443; 84484; 85025; 85379; 85610; 85730; 87040; 87077; 87081; 87088; 87186; 93005; 93306; 96365; 96375; 96376; 97110; 97116; 97162; 97530; 99291; C9113; G0378; J0696; J0780; J1644; J1815; J1956; J2270; J2405; J2765; Q9967

== ENCOUNTER 2020-08-02 02:07 | Emergency (ER) | payer BC, MEDICARE ==
[~2020-08-02] VITALS: Ht 160 cm; Wt 84.0 kg
[~2020-08-02 02:07] MED LIST changes: -ALBU8HFA PO; +ASPI-1071 PO; -CAR30T PO; -GLYB-97 PO; +LEVO250T58 PO; -LISI-600 PO; -METF500T PO; +NO HOME MEDS; -PHEN-716 PO; -POLY119P2 PO; -PRED50TA PO; -ZOC40T PO
--- NOTE | 2020-08-02 02:15 | NUR ---
initial negative stroke scale
--- NOTE | 2020-08-02 02:21 | NUR ---
adrián releief for Janice Medeiros RN report given care assumed
--- NOTE | 2020-08-02 02:22 | NUR ---
transported to CT
--- NOTE | 2020-08-02 02:22 | NUR ---
wayne Leblanc updated in lobby
[2020-08-02 02:30] LABS: BASOPHILS % (AUTO) 0.9 % (0-1); EOSINOPHILS # (AUTO) 0.3 X10'3 (0-0.9); EOSINOPHILS % (AUTO) 6.9 % (0-6); HEMOGLOBIN 12.9 g/dl (12.0-16.0); LYMPHOCYTES # (AUTO) 1.6 X10'3 (1.1-4.8); LYMPHOCYTES % (AUTO) 36.9 % (21-51); MEAN CORPUSCULAR HEMOGLOBIN 27.9 PG (27.0-31.0); MEAN CORPUSCULAR VOLUME 84.5 FL (78-98); MEAN PLATELET VOLUME 9.5 FL (7.4-10.4); MONOCYTES # (AUTO) 0.4 X10'3 (0-0.9); NEUTROPHILS % (AUTO) 46.3 % (42-75); PLATELET COUNT 187 X10'3 (140-440); RED BLOOD COUNT 4.61 X10'6 (4.20-5.60); RED CELL DISTRIBUTION WIDTH 13.1 % (11.5-14.5); WHITE BLOOD COUNT 4.4 X10'3 (4.5-11.0)
--- NOTE | 2020-08-02 02:32 | NUR ---
spoke with Dr Patel down graded stroke to general weakness. curb workerDIANN Amaro notified and triage changed to reflect such.
[2020-08-02 02:40] LABS: PARTIAL THROMBOPLASTIN TIME 24 SECONDS (22-32)
[2020-08-02 02:42] LABS: ALANINE AMINOTRANSFERASE 18 U/L (12-78); ALBUMIN 3.1 G/DL (3.4-5.0); ALBUMIN/GLOBULIN RATIO 0.7 (1.1-1.5); ALKALINE PHOSPHATASE 97 IU/L (46-116); ANION GAP 5 (8-16); ASPARTATE AMINO TRANSFERASE 15 U/L (10-37); BILIRUBIN,TOTAL 0.3 MG/DL (0.1-1.0); BLOOD UREA NITROGEN 20 MG/DL (7-18); BUN/CREATININE RATIO 18.2 (6.6-38.0); CHLORIDE 107 MMOL/L (99-107); GLUCOSE 201 MG/DL (70-104); POTASSIUM 3.9 MMOL/L (3.5-5.1); SODIUM 141 MMOL/L (135-145); TOTAL CARBON DIOXIDE 28.8 MMOL/L (24-32); TOTAL PROTEIN 7.6 G/DL (6.4-8.2); eGFR 49 ML/MIN
[2020-08-02 02:46] LABS: TROPONIN I < 0.04 NG/ML (0.0-0.05)
--- NOTE | 2020-08-02 03:12 | NUR ---
neuro tele consult right now and Jarod RN is assisting with this process.
[2020-08-02 04:12] VITALS: BP 191/97
--- NOTE | 2020-08-02 04:12 | NUR ---
PT STATES HER LEFT HAND IS JUST A LITTLE NUMB, NOT LIKE IT WAS AND HER LEFT FACE FEELS PRETTY NORMAL.
== END 2020-08-02 04:26 | disposition home or self-care (01) ==
LOC: ER 02:08
DX: R20.2 Paresthesia of skin (principal); R20.0 Anesthesia of skin; I10 Essential (primary) hypertension; E78.00 Pure hypercholesterolemia, unspecified; R79.1 Abnormal coagulation profile; J45.909 Unspecified asthma, uncomplicated; K21.9 Gastro-esophageal reflux disease without esophagitis; E11.9 Type 2 diabetes mellitus without complications; Z86.73 Personal history of transient ischemic attack (TIA), and cerebral infarction without residual deficits; Z90.49 Acquired absence of other specified parts of digestive tract; Z88.1 Allergy status to other antibiotic agents; Z79.82 Long term (current) use of aspirin; Z79.899 Other long term (current) drug therapy
CPT/HCPCS: 36415; 70450; 80053; 84484; 85025; 85610; 85730; 93005; 99285

== ENCOUNTER 2020-09-02 09:48 | Outpatient (CLI) | payer BC | END 2020-09-02 23:59 | disposition home or self-care (01) | LOC: 64 CT 09:48 | PROVIDERS: ATTEND Family Medicine | DX: I63.9 Cerebral infarction, unspecified (principal); G31.89 Other specified degenerative diseases of nervous system; I65.23 Occlusion and stenosis of bilateral carotid arteries; R58 Hemorrhage, not elsewhere classified | CPT/HCPCS: 70450 ==

== ENCOUNTER 2021-11-19 14:20 | Emergency (ER) | payer BC ==
[~2021-11-19] VITALS: Ht 160 cm; Wt 131.8 kg
[2021-11-19] VITALS (9 sets, daily range): BP systolic 128–150; BP diastolic 71–100
[~2021-11-19 14:20] MED LIST changes: +LEVO250T43 PO; -LEVO250T58 PO
[2021-11-19 15:23] LABS: BASOPHILS % (AUTO) 0.6 % (0-1); EOSINOPHILS # (AUTO) 0.2 X10'3 (0-0.9); EOSINOPHILS % (AUTO) 4.9 % (0-6); LYMPHOCYTES # (AUTO) 0.9 X10'3 (1.1-4.8); LYMPHOCYTES % (AUTO) 17.6 % (21-51); MEAN CORPUSCULAR HEMOGLOBIN 28.1 PG (27.0-31.0); MEAN CORPUSCULAR VOLUME 90.7 FL (78-98); MONOCYTES # (AUTO) 0.3 X10'3 (0-0.9); MONOCYTES % (AUTO) 6.3 % (2-12); NEUTROPHILS # (AUTO) 3.6 X10'3 (1.8-7.7); NEUTROPHILS % (AUTO) 70.6 % (42-75); PLATELET COUNT 318 X10'3 (140-440); RED BLOOD COUNT 1.81 X10'6 (4.20-5.60); RED CELL DISTRIBUTION WIDTH 16.1 % (11.5-14.5); WHITE BLOOD COUNT 5.1 X10'3 (4.5-11.0)
[2021-11-19 15:25] LABS: HEMOGLOBIN 5.1 g/dl (12.0-16.0)
[2021-11-19 15:26] LABS: HEMATOCRIT 16.4 % (35.0-45.0)
[2021-11-19] MEDS ORDERED: normal saline 1000ML IV soln IV ONE (15:30)
[2021-11-19] MEDS ORDERED: tranexamic acid 100mg/ml inj. IV ONE (15:30)
--- NOTE | 2021-11-19 15:35 | NUR ---
PROVIDER AT BEDSIDE.
[2021-11-19 15:39] LABS: ALANINE AMINOTRANSFERASE 23 U/L (12-78); ALBUMIN 2.6 G/DL (3.4-5.0); ALBUMIN/GLOBULIN RATIO 0.7 (1.1-1.5); ALKALINE PHOSPHATASE 63 IU/L (46-116); ANION GAP 10 (8-16); ASPARTATE AMINO TRANSFERASE 16 U/L (10-37); BILIRUBIN,TOTAL 0.3 MG/DL (0.1-1.0); BLOOD UREA NITROGEN 14 MG/DL (7-18); BUN/CREATININE RATIO 10.9 (6.6-38.0); CALCIUM 8.4 MG/DL (8.5-10.1); CHLORIDE 109 MMOL/L (99-107); CREATININE 1.29 MG/DL (0.40-0.90); GLUCOSE 164 MG/DL (70-104); POTASSIUM 4.1 MMOL/L (3.5-5.1); SODIUM 142 MMOL/L (135-145); TOTAL CARBON DIOXIDE 22.6 MMOL/L (24-32); TOTAL PROTEIN 6.3 G/DL (6.4-8.2); eGFR 41 ML/MIN
[2021-11-19] MEDS ORDERED: NORMAL SALINE IV ONE (16:25)
[2021-11-19] MEDS ORDERED: levoFLOXACIN-Levaquin 500mg/D5 100 ML IV ONE (16:25)
[2021-11-19] MEDS ORDERED: TRANEXAMIC ACID IV ONE (16:25)
[2021-11-19] MEDS ORDERED: ondansetron/PF 4mg/2ml inj IV ONE (17:40)
--- NOTE | 2021-11-19 19:42 | NUR ---
Patient resting comfortably on aren, son at bedside. Blood transfusion in progress, she reports no pain or issues at this time.
[2021-11-19 23:33] LABS: HEMOGLOBIN 7.1 g/dl (12.0-16.0); MEAN CORPUSCULAR HEMOGLOBIN 28.8 PG (27.0-31.0); MEAN CORPUSCULAR HGB CONC 32.6 g/dL (33.0-36.5); MEAN CORPUSCULAR VOLUME 88.2 FL (78-98); MEAN PLATELET VOLUME 9.3 FL (7.4-10.4); PLATELET COUNT 262 X10'3 (140-440); RED BLOOD COUNT 2.46 X10'6 (4.20-5.60); WHITE BLOOD COUNT 5.7 X10'3 (4.5-11.0)
[2021-11-20] MEDS ORDERED: APIX5TAB3 PO (00:19)
[2021-11-20] MEDS ORDERED: ACET-1008 PO (00:19)
[2021-11-20] MEDS ORDERED: INSU100V9 SQ (00:19)
[2021-11-20] MEDS ORDERED: ATOR40TA71 PO (00:19)
[2021-11-20] MEDS ORDERED: ACET-1985 PO (00:19)
[2021-11-20] MEDS ORDERED: ACET-2119 PO (00:19)
[2021-11-20] MEDS ORDERED: POTA20PA40 PO (00:19)
[2021-11-20 01:39] LABS: HEMATOCRIT 21.7 % (35.0-45.0)
--- NOTE | 2021-11-20 02:28 | NUR ---
Helped patient to the bathroom using walker w/o problem.
[2021-11-20 06:55] LABS: BASOPHILS % (AUTO) 0.5 % (0-1); EOSINOPHILS # (AUTO) 0.2 X10'3 (0-0.9); EOSINOPHILS % (AUTO) 4.1 % (0-6); HEMATOCRIT 22.2 % (35.0-45.0); HEMOGLOBIN 7.3 g/dl (12.0-16.0); LYMPHOCYTES # (AUTO) 1.1 X10'3 (1.1-4.8); LYMPHOCYTES % (AUTO) 19.7 % (21-51); MEAN CORPUSCULAR HEMOGLOBIN 28.6 PG (27.0-31.0); MEAN CORPUSCULAR HGB CONC 32.6 g/dL (33.0-36.5); MEAN CORPUSCULAR VOLUME 87.7 FL (78-98); MONOCYTES # (AUTO) 0.4 X10'3 (0-0.9); MONOCYTES % (AUTO) 7.6 % (2-12); NEUTROPHILS % (AUTO) 68.1 % (42-75); PLATELET COUNT 291 X10'3 (140-440); RED BLOOD COUNT 2.54 X10'6 (4.20-5.60); RED CELL DISTRIBUTION WIDTH 14.8 % (11.5-14.5); WHITE BLOOD COUNT 5.8 X10'3 (4.5-11.0)
[2021-11-20] MEDS ORDERED: FERR325T28 PO (07:20)
--- NOTE | 2021-11-20 07:36 | NUR ---
OLIVIAM with [facility] to call back for ride
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
[2021-11-20 10:17] VITALS: BP 139/38
== END 2021-11-20 11:21 | disposition home or self-care (01) ==
LOC: ER 14:21
DX: D25.9 Leiomyoma of uterus, unspecified (principal); Z20.822 Contact with and (suspected) exposure to COVID-19; D64.9 Anemia, unspecified; N93.9 Abnormal uterine and vaginal bleeding, unspecified; I50.9 Heart failure, unspecified; E78.00 Pure hypercholesterolemia, unspecified; J45.909 Unspecified asthma, uncomplicated; K21.9 Gastro-esophageal reflux disease without esophagitis; E11.9 Type 2 diabetes mellitus without complications; Z88.1 Allergy status to other antibiotic agents; Z79.899 Other long term (current) drug therapy
CPT/HCPCS: 36415; 36430; 74176; 76856; 80053; 85025; 85027; 86870; 86880; 86885; 86900; 86901; 86922; 87635; 96361; 96365; 96367; 96375; 99285; C9803; J1956; J2405; J3490; J7030; J7050; P9016

== ENCOUNTER 2023-05-28 12:46 | Emergency (ER) | payer BC, MEDICAID ==
[~2023-05-28] VITALS: Ht 160 cm; Wt 90.0 kg
[~2023-05-28 12:46] MED LIST changes: +ACET-1985 PO; -ASPI-1071 PO; +ATOR40TA71 PO; +INSU100V9 SQ; -LEVO250T43 PO; -NO HOME MEDS; +NYST30CR35 TP; +POTA20PA40 PO
[2023-05-28 16:56] VITALS: BP 158/115; PULSE 91; RESP 18; TEMP 97.9; O2SAT 96
== END 2023-05-28 16:59 | disposition home or self-care (01) ==
LOC: ER 12:46
DX: M25.561 Pain in right knee (principal); M25.461 Effusion, right knee; Z98.890 Other specified postprocedural states
CPT/HCPCS: 29505; 73564; 73700; 99284

== ENCOUNTER 2023-06-07 06:15 | Inpatient (IN) | payer BC, MEDICAID ==
[~2023-06-07] VITALS: Ht 160 cm; Wt 81.8 kg
[2023-06-07 09:16] LABS: BASOPHILS % (AUTO) 0.4 % (0-1); EOSINOPHILS # (AUTO) 0.2 X10'3 (0-0.9); EOSINOPHILS % (AUTO) 5.4 % (0-6); HEMATOCRIT 37.6 % (35.0-45.0); HEMOGLOBIN 12.4 g/dl (12.0-16.0); LYMPHOCYTES # (AUTO) 1.2 X10'3 (1.1-4.8); LYMPHOCYTES % (AUTO) 28.2 % (21-51); MEAN CORPUSCULAR HEMOGLOBIN 28.3 PG (27.0-31.0); MEAN CORPUSCULAR HGB CONC 32.9 g/dL (33.0-36.5); MEAN CORPUSCULAR VOLUME 86.1 FL (78-98); MONOCYTES # (AUTO) 0.4 X10'3 (0-0.9); MONOCYTES % (AUTO) 10.4 % (2-12); NEUTROPHILS # (AUTO) 2.4 X10'3 (1.8-7.7); NEUTROPHILS % (AUTO) 55.6 % (42-75); PLATELET COUNT 174 X10'3 (140-440); RED BLOOD COUNT 4.36 X10'6 (4.20-5.60); RED CELL DISTRIBUTION WIDTH 14.6 % (11.5-14.5); WHITE BLOOD COUNT 4.3 X10'3 (4.5-11.0)
[2023-06-07 09:18] LABS: PROTHROMBIN TIME 10.7 SECONDS (9.0-12.0)
[2023-06-07 09:20] LABS: ALANINE AMINOTRANSFERASE 26 U/L (12-78); ALBUMIN 2.8 G/DL (3.4-5.0); ALBUMIN/GLOBULIN RATIO 0.6 (1.1-1.5); ALKALINE PHOSPHATASE 74 IU/L (46-116); ANION GAP 8 (8-16); ASPARTATE AMINO TRANSFERASE 21 U/L (10-37); BILIRUBIN,TOTAL 0.3 MG/DL (0.1-1.0); BLOOD UREA NITROGEN 29 MG/DL (7-18); BUN/CREATININE RATIO 23.4 (10.0-20.0); CALCIUM 8.8 MG/DL (8.5-10.1); CHLORIDE 106 MMOL/L (99-107); CREATININE 1.24 MG/DL (0.40-0.90); GLUCOSE 147 MG/DL (70-104); POTASSIUM 4.2 MMOL/L (3.5-5.1); SODIUM 140 MMOL/L (135-145); TOTAL CARBON DIOXIDE 25.8 MMOL/L (24-32); TOTAL PROTEIN 7.2 G/DL (6.4-8.2); eCRCL 33 ML/MIN; eGFR 42 ML/MIN
[2023-06-07 09:29] LABS: PRO BRAIN NATRIURETIC PEPTIDE 241 PG/ML (0-125)
[2023-06-07] MEDS ORDERED: HYDROcodone/acetaminophen 5mg/325mg tablet PO PRN (11:25)
[2023-06-07] MEDS ORDERED: morphine 2 MG/ML inj. syringe IV PRN ×2 (11:25)
[2023-06-07] MEDS ORDERED: potassium Cl 20 mEq SR tablet PO PRN ×2 (11:25)
[2023-06-07] MEDS ORDERED: normal saline 1000ml 1,000 ML IV SCH (11:25)
[2023-06-07] MEDS ORDERED: potassium Cl 40MEQ/1/2NS 520ml 520 ML IV PRN (11:25)
[2023-06-07] MEDS ORDERED: ondansetron/PF 4mg/2ml inj IV PRN (11:25)
[2023-06-07] MEDS ORDERED: magnesium hydroxide 30ml (MOM) UD suspension PO PRN (11:25)
[2023-06-07] MEDS ORDERED: magnesium 4gm in 100ml NS 100 ML IV PRN (11:25)
[2023-06-07] MEDS ORDERED: magnesium Cl slow-release 64mg tablet PO PRN (11:25)
[2023-06-07] MEDS ORDERED: acetaminophen 325mg tablet PO PRN (11:25)
[2023-06-07] MEDS ORDERED: mag hydrox/Alum hydrox/simeth 30ml oral suspension PO PRN (11:25)
[2023-06-07] MEDS ORDERED: HYDROcodone/acetaminophen 10/325mg tab PO PRN (11:25)
[2023-06-07] MEDS ORDERED: magnesium 2GM in 50ml NS 50 ML IV PRN (11:25)
[2023-06-07 11:41] LABS: BILIRUBIN,URINE NEGATIVE (Neg); CLARITY,URINE CLOUDY (Clear); COLOR,URINE YELLOW (Yellow); GLUCOSE, URINE NEGATIVE (Neg); KETONES,URINE NEGATIVE (Neg); LEUKOCYTE ESTERASE ,URINE SMALL (Neg); NITRITES, URINE POSITIVE (Neg); OCCULT BLOOD,URINE TRACE-INTACT (Neg); PROTEIN,URINE TRACE mg/dl (Neg); UROBILINOGEN,URINE 0.2 E.U/dL (0.2-1.0)
[2023-06-07 11:53] LABS: BACTERIA,URINE 4+ /HPF (Neg); UA COLLECTION TYPE NON-SPECIFIED
[2023-06-07 11:54] LABS: RBC,URINE 0-2 /HPF (0-2); WBC CLUMPS,URINE MANY /HPF (NEGATIVE)
[2023-06-07 11:58] LABS: HYALINE CASTS 0-3 /LPF (NEGATIVE); SQUAMOUS EPITHELIAL CELL,UR FEW /LPF (FEW); WBC,URINE 20-30 /HPF (0-4)
[2023-06-07 14:11] VITALS: BP 162/85; PULSE 74; RESP 16; TEMP 98.1; O2SAT 95
[2023-06-07] MEDS ORDERED: docusate sod 100mg capsule PO SCH (20:00)
[2023-06-07] MEDS ORDERED: K and/or MAG REPLACEMENT MC SCH (20:00)
== END 2023-06-07 14:11 | disposition left against medical advice (07) | DRG 563 ==
LOC: ER 06:15 → ED HOLD 11:31
PROVIDERS: ADMIT Internal Medicine; ATTEND Internal Medicine
DX: S86.912A Strain of unspecified muscle(s) and tendon(s) at lower leg level, left leg, initial encounter (principal); Z59.01 Sheltered homelessness; M25.552 Pain in left hip; I50.9 Heart failure, unspecified; I11.0 Hypertensive heart disease with heart failure; E11.9 Type 2 diabetes mellitus without complications; E78.00 Pure hypercholesterolemia, unspecified; J45.909 Unspecified asthma, uncomplicated; K21.9 Gastro-esophageal reflux disease without esophagitis; I48.91 Unspecified atrial fibrillation; W18.39XA Other fall on same level, initial encounter; Z90.49 Acquired absence of other specified parts of digestive tract; Z86.73 Personal history of transient ischemic attack (TIA), and cerebral infarction without residual deficits; Z83.3 Family history of diabetes mellitus; Z82.49 Family history of ischemic heart disease and other diseases of the circulatory system; Z79.899 Other long term (current) drug therapy; Y93.89 Activity, other specified; Y92.89 Other specified places as the place of occurrence of the external cause; Y99.8 Other external cause status
CPT/HCPCS: 36415; 71045; 73502; 73560; 80053; 81001; 83735; 83880; 84484; 85025; 85610; 93005; 99285; G0378; J7030